=== PATIENT | female | born 1945 | race Caucasian/White ===

== ENCOUNTER → 2016-12-18 | Outpatient (CLI) | payer MEDICARE, BC ==
--- NOTE | 2016-12-24 08:28 | MM ---
Reason for exam: screening (asymptomatic). Last mammogram was performed 4 years and 3 months ago. History: Patient had first child at age 47. Family history of breast cancer in mother. Physical Findings: A clinical breast exam by your physician is recommended on an annual basis and results should be correlated with mammographic findings. MG 3D Screening Mammo W/Cad Bilateral CC and MLO view(s) were taken. Prior study comparison: October 01, 2012, mammogram, performed at [facility]. September 03, 2011, mammogram, performed at [facility]. There are scattered fibroglandular densities. There is chronic nodularity bilaterally. No significant changes when compared with prior studies. ASSESSMENT: Benign, BI-RAD 2 RECOMMENDATION: Routine screening mammogram of both breasts in 1 year.
== END ==
LOC: RADMAMWWP 16:21
PROVIDERS: ATTEND Internal Medicine
DX: Z12.31 Encounter for screening mammogram for malignant neoplasm of breast (principal)
CPT/HCPCS: 77063; G0202

== ENCOUNTER 2017-08-24 06:28 | Emergency (ER) | payer MEDICARE, BC ==
[2017-08-24] MEDS ORDERED: ACET/COD 240MG/24MG LIQ 10 ML SYRG PO ONE (07:37)
[2017-08-24] MEDS ORDERED: predniSONE 20 MG TAB PO STA (07:37)
[2017-08-24] MEDS ORDERED: IPRATROPIUM-ALBUTEROL 3 ML NEB INHALATION STA (07:37)
--- NOTE | 2017-08-24 08:18 | XR ---
EXAMINATION TYPE: XR chest 2V DATE OF EXAM: 08/24/2017 HISTORY: Pain. REFERENCE: NONE. FINDINGS: The lungs are clear. Pleural space are clear. The heart is not enlarged. IMPRESSION: NO ACUTE INTRATHORACIC ABNORMALITY.
--- NOTE | 2017-08-24 08:19 | XR ---
EXAMINATION TYPE: XR soft tissue neck , 2 VIEWS DATE OF EXAM ORDERED: 08/24/2017 HISTORY: Pain. COMPARISON: None. FINDINGS: Prevertebral soft tissues are normal. The epiglottis is normal. The airway appears patent. IMPRESSION: NORMAL SOFT TISSUE VIEWS OF THE NECK.
[2017-08-24] MEDS ORDERED: AZITHROMYCIN 500 MG TAB PO STA (08:33)
--- NOTE | 2017-08-24 08:34 | ED ---
General Adult HPI - General Chief complaint: Upper Respiratory Infection Stated complaint: Sore Throat/Cough Time Seen by Provider: 08/24/17 07:14 Source: patient, RN notes reviewed, old records reviewed Mode of arrival: ambulatory Limitations: no limitations - History of Present Illness Initial comments: This is a 71-year-old female the ER for evaluation of cough sore throat. Patient has history of asthma COPD. No recent hospitalizations or recent travel history no chest pain. Patient has has had symptoms previously worsening mainly over the last 2 days. Denies fever. Patient is internal modifying factors for symptoms, symptoms may be a little bit worse with activity - Related Data Home Medications Medication Instructions Recorded Confirmed Albuterol Sulfate [Proair Hfa] 1 - 2 puff INHALATION RT-Q6H PRN 08/24/17 Aspirin 81 mg PO DAILY 08/24/17 08/24/17 Calcium Carbonate/Vitamin D3 1 tab PO BID 08/24/17 08/24/17 [Calcium 500-Vit D3 200 Tablet] Cyanocobalamin [Vitamin B-12] 500 mcg PO DAILY 08/24/17 08/24/17 Lisinopril [Zestril] 10 mg PO DAILY 08/24/17 08/24/17 Multivitamins, Thera [Multivitamin 1 tab PO DAILY 08/24/17 08/24/17 (formulary)] Simvastatin [Zocor] 10 mg PO HS 08/24/17 08/24/17 Tiotropium 18 Mcg/Puff [Spiriva] 1 cap INHALATION RT-DAILY 08/24/17 08/24/17 Previous Rx's Medication Instructions Recorded Azithromycin [Zithromax Z-pack] 0 mg PO DIRECTED #1 pack 08/24/17 predniSONE 50 mg PO DAILY #5 tab 08/24/17 Allergies Allergy/AdvReac Type Severity Reaction Status Date / Time No Known Allergies Allergy Verified 08/24/17 07:18 Review of Systems ROS Statement: Those systems with pertinent positive or pertinent negative responses have been documented in the HPI. ROS Other: All systems not noted in ROS Statement are negative. Past Medical History Past Medical History: Asthma, COPD History of Any Multi-Drug Resistant Organisms: None Reported Past Surgical History: No Surgical Hx Reported Past Psychological History: No Psychological Hx Reported Smoking Status: Former smoker Past Alcohol Use History: None Reported Past Drug Use History: None Reported General Exam Limitations: no limitations General appearance: alert, in no apparent distress Head exam: Present: atraumatic, normocephalic, normal inspection Eye exam: Present: normal appearance, PERRL, EOMI. Absent: scleral icterus, conjunctival injection, periorbital swelling ENT exam: Present: normal exam, mucous membranes moist Neck exam: Present: normal inspection. Absent: tenderness, meningismus, lymphadenopathy Respiratory exam: Present: wheezes. Absent: normal lung sounds bilaterally, respiratory distress, rales, rhonchi, stridor Cardiovascular Exam: Present: regular rate, normal rhythm, normal heart sounds. Absent: systolic murmur, diastolic murmur, rubs, gallop, clicks GI/Abdominal exam: Present: soft, normal bowel sounds. Absent: distended, tenderness, guarding, rebound, rigid Extremities exam: Present: normal inspection, full ROM, normal capillary refill. Absent: tenderness, pedal edema, joint swelling, calf tenderness Back exam: Present: normal inspection Neurological exam: Present: alert, oriented X3, CN II-XII intact Psychiatric exam: Present: normal affect, normal mood Skin exam: Present: warm, dry, intact, normal color. Absent: rash Course Vital Signs 08/24/17 08/24/17 08/24/17 06:30 08:24 08:38 Temperature 98.7 F Pulse Rate 101 H 100 108 H Respiratory 20 Rate Blood Pressure 137/63 O2 Sat by Pulse 95 Oximetry 08/24/17 08:55 Temperature 98 F Pulse Rate 78 Respiratory 16 Rate Blood Pressure 135/74 O2 Sat by Pulse 98 Oximetry Medical Decision Making - Medical Decision Making 71 female DEL with cough sore throat. Patient with bronchitis. Patient will be discharged home on appropriate treatment, patient in no acute distress, currently feeling better - Lab Data Lab Results 08/24/17 08/24/17 Range/Units 07:52 08:30 Group A Strep Rapid Negative Negative (Negative) - Radiology Data Radiology results: report reviewed (X-ray soft tissue neck x-ray negative for acute disease), image reviewed Disposition Clinical Impression: Bronchitis, Asthmatic bronchitis Disposition: HOME SELF-CARE Condition: Good Instructions: Acute Bronchitis (ED) Prescriptions: Azithromycin [Zithromax Z-pack] 0 mg PO DIRECTED #1 pack predniSONE 50 mg PO DAILY #5 tab Referrals: Roddy Reyes MD [Primary Care Provider] - 1-2 days
[2017-08-24 08:56] VITALS: BP 135/74; PULSE 78; RESP 16; TEMP 98
== END 2017-08-24 08:55 | disposition home or self-care (01) ==
LOC: EC 06:28
DX: J44.9 Chronic obstructive pulmonary disease, unspecified (principal); Z87.891 Personal history of nicotine dependence; Z79.82 Long term (current) use of aspirin; Z79.899 Other long term (current) drug therapy
CPT/HCPCS: 94640; 87081; 87430; 70360; 71046; 99284; J7512

== ENCOUNTER → 2018-02-03 | Outpatient (CLI) | payer MEDICARE, BC ==
--- NOTE | 2018-02-05 12:52 | MM ---
Reason for exam: screening (asymptomatic). Last mammogram was performed 1 year and 2 months ago. History: Patient is postmenopausal and had first child at age 47. Family history of breast cancer in mother. Physical Findings: A clinical breast exam by your physician is recommended on an annual basis and results should be correlated with mammographic findings. MG 3D Screening Mammo W/Cad Bilateral CC and MLO view(s) were taken. Prior study comparison: December 18, 2016, bilateral MG 3d screening mammo w/cad. October 01, 2012, mammogram, performed at [facility]. The breast tissue is heterogeneously dense. This may lower the sensitivity of mammography. Finding: There are typically benign round calcifications in the right breast. There is no discrete abnormality. ASSESSMENT: Benign, BI-RAD 2 RECOMMENDATION: Routine screening mammogram of both breasts in 1 year.
== END | disposition home or self-care (01) ==
LOC: RADMAMWWP 09:09
PROVIDERS: ATTEND Internal Medicine
DX: Z12.31 Encounter for screening mammogram for malignant neoplasm of breast (principal)
CPT/HCPCS: 77063; 77067

== ENCOUNTER → 2019-03-05 | Outpatient (CLI) | payer MEDICARE, BC ==
--- NOTE | 2019-03-09 10:18 | MM ---
Reason for exam: screening (asymptomatic). Last mammogram was performed 1 year and 1 month ago. History: Patient is postmenopausal and had first child at age 47. Family history of breast cancer in mother at age 55. Physical Findings: A clinical breast exam by your physician is recommended on an annual basis and results should be correlated with mammographic findings. MG 3D Screening Mammo W/Cad Bilateral CC and MLO view(s) were taken. Prior study comparison: February 03, 2018, bilateral MG 3d screening mammo w/cad. December 18, 2016, bilateral MG 3d screening mammo w/cad. No significant changes when compared with prior studies. ASSESSMENT: Negative, BI-RAD 1 RECOMMENDATION: Routine screening mammogram of both breasts in 1 year.
== END | disposition home or self-care (01) ==
LOC: RADMAMWWP 09:26
PROVIDERS: ATTEND Internal Medicine
DX: Z12.31 Encounter for screening mammogram for malignant neoplasm of breast (principal)
CPT/HCPCS: 77063; 77067

== ENCOUNTER 2023-07-02 19:56 | Emergency (ER) | payer MEDICARE, BC ==
--- NOTE | 2023-07-02 20:44 | ED ---
SOB HPI - General Source: patient, RN notes reviewed <Greta Ruvalcaba - Last Filed: 07/02/23 20:43> <Kerrie Hernández - Last Filed: 07/03/23 03:38> - General Stated Complaint: SOB,Cough Time Seen by Provider: 07/02/23 20:43 - History of Present Illness Initial Comments: Patient is 77-year-old female presented ER with chief complaint of shortness of breath. Patient was recently seen at urgent care for similar complaint. Daughter reports that it now sounds like it is in her chest and that she is coughing up clear phlegm. Patient has a history of COPD. Patient is normally on 3 L of oxygen at home and has recently had to move it up to 4. Patient denies any fevers, chills, night sweats. (Greta Ruvalcaba) 7-year-old female history of COPD who presents to ER today for reevaluation of persistent viral URI-type symptoms. Patient was seen and evaluated in urgent care last week she was prescribed an antibiotic that she believes is Augmentin as well as 5 days of 50 mg of prednisone. She completed this course of treatment but has persistent nonproductive cough and wheezing. Patient has oxygen as needed at home but has noted she's felt like she needed it more often lately. Patient states she does 4 breathing treatments daily and has transient improvement in her symptoms but never resolution. Patient denies any fevers chills or chest pain. (Kerrie Hernández) - Related Data Home Medications Medication Instructions Recorded Confirmed Albuterol Sulfate [Proair Hfa] 1 - 2 puff INHALATION RT-Q6H PRN 08/24/17 08/24/17 Aspirin 81 mg PO DAILY 08/24/17 08/24/17 Calcium Carbonate/Vitamin D3 1 tab PO BID 08/24/17 08/24/17 [Calcium 500-Vit D3 200 Tablet] Cyanocobalamin [Vitamin B-12] 500 mcg PO DAILY 08/24/17 08/24/17 Multivitamins, Thera [Multivitamin 1 tab PO DAILY 08/24/17 08/24/17 (formulary)] Simvastatin [Zocor] 10 mg PO HS 08/24/17 08/24/17 Tiotropium 18 Mcg/Puff [Spiriva] 1 cap INHALATION RT-DAILY 08/24/17 08/24/17 lisinopriL [Zestril] 10 mg PO DAILY 08/24/17 08/24/17 Previous Rx's Medication Instructions Recorded Azithromycin [Zithromax Z-pack (6 0 mg PO DIRECTED #1 pack 08/24/17 tabs)] predniSONE 50 mg PO DAILY #5 tab 08/24/17 Ipratropium-Albuterol Nebulize 3 ml INHALATION BID PRN #30 ml 07/03/23 [Duoneb 0.5 mg-3 mg/3 ml Soln] Allergies Allergy/AdvReac Type Severity Reaction Status Date / Time No Known Allergies Allergy Verified 07/02/23 21:05 Review of Systems ROS Other: All systems not noted in ROS Statement are negative. <Greta Ruvalcaba - Last Filed: 07/02/23 20:43> ROS Other: All systems not noted in ROS Statement are negative. <Kerrie Hernández P - Last Filed: 07/03/23 03:38> ROS Statement: Those systems with pertinent positive or pertinent negative responses have been documented in the HPI. Past Medical History Past Medical History: Asthma, COPD History of Any Multi-Drug Resistant Organisms: None Reported Past Surgical History: No Surgical Hx Reported Past Psychological History: No Psychological Hx Reported Past Alcohol Use History: None Reported Past Drug Use History: None Reported <Greta Ruvalcaba - Last Filed: 07/02/23 20:43> General Exam <Greta Ruvalcaba - Last Filed: 07/02/23 20:43> General appearance: alert Head exam: Present: atraumatic, normocephalic ENT exam: Present: normal exam Respiratory exam: Present: wheezes Cardiovascular Exam: Present: regular rate GI/Abdominal exam: Present: soft Rectal exam: Present: deferred Neurological exam: Present: alert, oriented X3 Psychiatric exam: Present: normal affect, normal mood <Kerrie Hernández P - Last Filed: 07/03/23 03:38> - General Exam Comments Initial Comments: Visual Physical Exam Vital signs reviewed General: Well-appearing, nontoxic, no acute distress. Head: Normocephalic, atraumatic Eyes: PERRLA, EOMI ENT: Airway patent Chest: Nonlabored breathing Skin: No visual rash, normal skin tone Neuro: Alert and oriented 3 Musculoskeletal: No gross abnormalities (Greta Ruvalcaba) Course Vital Signs 07/02/23 07/03/23 07/03/23 21:01 02:37 02:59 Temperature 98.5 F Pulse Rate 81 89 80 Respiratory 20 20 Rate Blood Pressure 139/76 136/65 O2 Sat by Pulse 99 98 Oximetry 07/03/23 03:07 Temperature Pulse Rate 80 Respiratory Rate Blood Pressure O2 Sat by Pulse Oximetry Medical Decision Making <Greta Ruvalcaba - Last Filed: 07/02/23 20:43> - Lab Data Result diagrams: 07/02/23 21:58 07/02/23 21:58 <Kerrie Hernández - Last Filed: 07/03/23 03:38> - Medical Decision Making I performed the quick note portion of the exam. Electronically signed by Greta Ruvalcaba PA-C (Greta Ruvalcaba) Was pt. sent in by a medical professional or institution (CLAUDIA Blakely, NURSE SPECIAL, urgent care, hospital, or care home...) When possible be specific @ -No Did you speak to anyone other than the patient for history (EMS, parent, family, police, friend...)? What history was obtained from this source @ -No Did you review nursing and triage notes (agree or disagree)? Why? @ -I reviewed and agree with nursing and triage notes Were old charts reviewed (outside hosp., previous admission, EMS record, old EKG, old radiological studies, urgent care reports/EKG's, care home records)? Report findings @ -No old charts were reviewed Differential Diagnosis (chest pain, altered mental status, abdominal pain women, abdominal pain men, vaginal bleeding, weakness, fever, dyspnea, syncope, headache, dizziness, GI bleed, back pain, seizure, CVA, palpatations, mental health)? @ -Differential Dyspnea: Coronary syndrome, arrhythmia, tamponade, asthma, COPD, pulmonary embolism, pneumonia, pneumothorax, pulmonary effusion, anaphylaxis, diabetic ketoacidosis, flailed chest, pulmonary contusion, diaphragmatic rupture, anemia, neuromuscular, this is not meant to be an all-inclusive list. EKG interpreted by me (3pts min.). @ -As above X-rays interpreted by me (1pt min.). @ COPD changes, no pneumothorax no focal consolidations CT interpreted by me (1pt min.). @ -None done U/S interpreted by me (1pt. min.). @ -None done What testing was considered but not performed or refused? (CT, X-rays, U/S, labs)? Why? @ -None What meds were considered but not given or refused? Why? @ -None Did you discuss the management of the patient with other professionals (professionals i.e. DrErrol, PA, NURSE SPECIAL, lab, RT, psych nurse, social media developer, immigration lawyer, teacher, classifications officer cc/cm, caseworker protective services)? Give summary @ -No Was smoking cessation discussed for >3mins.? @ -No Was critical care preformed (if so, how long)? @ -No Were there social determinants of health that impacted care today? How? (Homelessness, low income, unemployed, alcoholism, drug addiction, transportation, low edu. Level, literacy, decrease access to med. care, intermediate, rehab)? @ -No Was there de-escalation of care discussed even if they declined (Discuss DNR or withdrawal of care, Hospice)? DNR status @ -No What co-morbidities impacted this encounter? (DM, HTN, Smoking, COPD, CAD, Canc er, CVA, ARF, Chemo, Hep., AIDS, mental health diagnosis, sleep apnea, morbid obesity)? @ -COPD, obesity Was patient admitted / discharged? Hospital course, mention meds given and route, prescriptions, significant lab abnormalities, going to OR and other pertinent info. @ Discharge Patient's workup was initiated in the waiting room due to prolonged wait times. Chest x-ray, viral swabs and labs were obtained. Chest x-ray shows changes c onsistent with recent COVID infection though the patient reports she tested negative last week. Viral swabs are negative today. Labs are nonactionable. Patient received a DuoNeb treatment reported feeling better area patient comfortable with plan for discharge home with DuoNeb's. Undiagnosed new problem with uncertain prognosis? @ -No Drug Therapy requiring intensive monitoring for toxicity (Heparin, Nitro, Insulin, Cardizem)? @ -No Were any procedures done? @ -No Diagnosis/symptom? @ COPD exacerbation Acute, or Chronic, or Acute on Chronic? @ -Acute on chronic Uncomplicated (without systemic symptoms) or Complicated (systemic symptoms)? @ -default Side effects of treatment? @ -No Exacerbation, Progression, or Severe Exacerbation? @ Exacerbation Poses a threat to life or bodily function? How? (Chest pain, [place], [place], pneumonia, PE, COPD, DKA, ARF, appy, cholecystitis, CVA, Diverticulitis, Homicidal, Suicidal, threat to staff... and all critical care pts) @ Unlikely (Kerrie Hernández) - Lab Data Lab Results 07/02/23 07/02/23 07/02/23 Range/Units 21:58 21:58 21:58 WBC 11.6 H (3.8-10.6) k/uL RBC 3.95 (3.80-5.40) m/uL Hgb 13.1 (11.4-16.0) gm/dL Hct 39.4 (34.0-46.0) % MCV 99.7 (80.0-100.0) fL MCH 33.1 (25.0-35.0) pg MCHC 33.2 (31.0-37.0) g/dL RDW 12.6 (11.5-15.5) % Plt Count 189 (150-450) k/uL MPV 7.5 Sodium 139 (137-145) mmol/L Potassium 4.5 (3.5-5.1) mmol/L Chloride 108 H (98-107) mmol/L Carbon Dioxide 23 (22-30) mmol/L Anion Gap 8 mmol/L BUN 15 (7-17) mg/dL Creatinine 1.03 (0.52-1.04) mg/dL Est GFR (CKD-EPI)AfAm 62 (>60 ml/min/1.73 sqM) Est GFR (CKD-EPI)NonAf 53 (>60 ml/min/1.73 sqM) Glucose 102 H (74-99) mg/dL Calcium 9.5 (8.4-10.2) mg/dL Total Bilirubin 1.2 (0.2-1.3) mg/dL AST 30 (14-36) U/L ALT 38 H (4-34) U/L Alkaline Phosphatase 71 (38-126) U/L Troponin I (0.000-0.034) ng/mL NT-Pro-B Natriuret Pep 82 pg/mL Total Protein 6.6 (6.3-8.2) g/dL Albumin 4.2 (3.5-5.0) g/dL Influenza Type A (PCR) Not Detected (Not Detectd) Influenza Type B (PCR) Not Detected (Not Detectd) RSV (PCR) Not Detected (Not Detectd) SARS-CoV-2 (PCR) Not Detected (Not Detectd) 07/02/23 Range/Units 21:58 WBC (3.8-10.6) k/uL RBC (3.80-5.40) m/uL Hgb (11.4-16.0) gm/dL Hct (34.0-46.0) % MCV (80.0-100.0) fL MCH (25.0-35.0) pg MCHC (31.0-37.0) g/dL RDW (11.5-15.5) % Plt Count (150-450) k/uL MPV Sodium (137-145) mmol/L Potassium (3.5-5.1) mmol/L Chloride (98-107) mmol/L Carbon Dioxide (22-30) mmol/L Anion Gap mmol/L BUN (7-17) mg/dL Creatinine (0.52-1.04) mg/dL Est GFR (CKD-EPI)AfAm (>60 ml/min/1.73 sqM) Est GFR (CKD-EPI)NonAf (>60 ml/min/1.73 sqM) Glucose (74-99) mg/dL Calcium (8.4-10.2) mg/dL Total Bilirubin (0.2-1.3) mg/dL AST (14-36) U/L ALT (4-34) U/L Alkaline Phosphatase (38-126) U/L Troponin I <0.012 (0.000-0.034) ng/mL NT-Pro-B Natriuret Pep pg/mL Total Protein (6.3-8.2) g/dL Albumin (3.5-5.0) g/dL Influenza Type A (PCR) (Not Detectd) Influenza Type B (PCR) (Not Detectd) RSV (PCR) (Not Detectd) SARS-CoV-2 (PCR) (Not Detectd) Disposition <Greta Ruvalcaba - Last Filed: 07/02/23 20:43> Is patient prescribed a controlled substance at d/c from ED?: No <Kerrie Hernández - Last Filed: 07/03/23 03:38> Clinical Impression: Viral URI, COPD exacerbation Disposition: HOME SELF-CARE Condition: Stable Referrals: Jm Diggs MD [Primary Care Provider] - 1-2 days
[2023-07-02 21:06] VITALS: RESP 20
[2023-07-02 22:22] LABS: HCT 39.4 % (34.0-46.0); HGB 13.1 gm/dL (11.4-16.0); MCH 33.1 pg (25.0-35.0); MCHC 33.2 g/dL (31.0-37.0); MCV 99.7 fL (80.0-100.0); Mean Platelet Volume 7.5; Platelet Count 189 k/uL (150-450); RBC 3.95 m/uL (3.80-5.40); RDW 12.6 % (11.5-15.5); WBC 11.6 k/uL (3.8-10.6)
[2023-07-02 22:39] LABS: ALT 38 U/L (4-34); AST 30 U/L (14-36); African American GFR (CKD) 62 (>60 ml/min/1.73 sqM); Albumin 4.2 g/dL (3.5-5.0); Alkaline Phosphatase 71 U/L (38-126); Anion Gap 8 mmol/L; Blood Urea Nitrogen 15 mg/dL (7-17); Calcium 9.5 mg/dL (8.4-10.2); Carbon Dioxide 23 mmol/L (22-30); Chloride 108 mmol/L (98-107); Glucose 102 mg/dL (74-99); Non-African American GFR(CKD) 53 (>60 ml/min/1.73 sqM); Potassium 4.5 mmol/L (3.5-5.1); Sodium 139 mmol/L (137-145); Total Bilirubin 1.2 mg/dL (0.2-1.3); Total Protein 6.6 g/dL (6.3-8.2)
[2023-07-02 22:48] LABS: NT-Pro-B-Type Natriuretic Pept 82 pg/mL
--- NOTE | 2023-07-03 01:25 | XR ---
EXAMINATION TYPE: XR chest 2V DATE OF EXAM: 07/02/2023 9:20 PM CLINICAL INDICATION:Female, 77 years old with history of cough; [facility] COMPARISON: 01/02/2022 TECHNIQUE: XR chest 2V. Frontal PA and lateral views of the chest. FINDINGS: Lines/Tubes: Extrinsic structures over the chest. No indwelling lines are seen. Heart/mediastinum: Cardiomediastinal silhouette is well defined. Heart size is normal. Atherosclero tic calcifications are seen in the aorta. Pulmonary vascularity: Not increased, Lungs/Pleura: Prominent interstitial lung markings are seen scattered throughout the lungs with mild hyperinflation, mild flattening of the diaphragm and increased lucency of the lung apices. No evidenc e of focal consolidation, pneumothorax or pleural effusion. Musculoskeletal: No acute osseous abnormality demonstrated in the limits of the exam. Mild degenerat corine changes of the dorsal spine. Other findings: None. IMPRESSION: Possible COPD changes. No acute cardiopulmonary abnormality.
[2023-07-03] MEDS ORDERED: IPRATROPIUM-ALBUTEROL 3 ML NEB INHALATION STA (02:42)
[2023-07-03 04:32] VITALS: BP 105/59; PULSE 99; TEMP 98.8
== END 2023-07-03 04:20 | disposition home or self-care (01) ==
LOC: EC 19:56
DX: J44.1 Chronic obstructive pulmonary disease with (acute) exacerbation (principal); J06.9 Acute upper respiratory infection, unspecified; Z79.899 Other long term (current) drug therapy; Z20.822 Contact with and (suspected) exposure to COVID-19
CPT/HCPCS: 36415; 71046; 80053; 83880; 84484; 85027; 87636; 94640; 99285

== ENCOUNTER 2024-04-14 11:56 | Day surgery (SDC) | payer MEDICARE, BC ==
[2024-04-13 09:26] VITALS: BMI 36.6
[~2024-04-14 11:56] MED LIST: ATROPINE SULFATE 0.4 MG/ML 1 ML VIAL IM ONE; LACTATED RINGERS 1,000 ML IV SCH; LIDOCAINE 1% (10MG/ML) FOR IV START INTRADERMA PRN
[2024-04-14 12:53] VITALS: TEMP 97
[2024-04-14] MEDS: IV FLUID CONTINUATION 1,000 ML IV ONE (12:55)
[2024-04-14] MEDS: LIDOCAINE 2% INJ 20 MG/ML INTRATRACH ONE ×2 (13:03→13:24)
[2024-04-14] MEDS: LACTATED RINGERS 1,000 ML IV SCH (13:06)
[2024-04-14] MEDS ORDERED: PROPOFOL 10 MG/ML 20 ML VIAL IV ONE (13:09)
[2024-04-14] MEDS ORDERED: LIDOCAINE 2% (PF) 20 MG/ML 5 ML VIAL ONE (13:09)
[2024-04-14 13:13] LABS: Glucose,Whole Blood 95 mg/dL (70-110)
[2024-04-14 13:44] VITALS: RESP 22
[2024-04-14] MEDS: IPRATROPIUM-ALBUTEROL 3 ML NEB INHALATION STA (13:51)
--- NOTE | 2024-04-14 15:18 | XR ---
EXAMINATION TYPE: XR chest 1V portable DATE OF EXAM: 04/14/2024 3:05 PM COMPARISON: Chest radiographs from 04/02/2024 TECHNIQUE: XR chest 1V portable Portable AP radiograph of the chest. CLINICAL INDICATION:Female, 78 years old with history of post bronch, persistent cough/difficulty megan athing; FINDINGS: Lungs/Pleura: There is no evidence of pleural effusion, focal consolidation, or pneumothorax. Pulmonary vascularity: Unremarkable. Heart/mediastinum: Cardiomediastinal silhouette is unremarkable. Atherosclerotic calcifications are seen in the aorta. Musculoskeletal: No acute osseous pathology. IMPRESSION: No acute cardiopulmonary disease/process. [facility], , 04/14/2024 3:16 PM
[2024-04-14] MEDS: methylPREDNISolone SOD SUCCI 125 MG/2 ML VIAL IV STA (15:42)
[2024-04-14 15:58] VITALS: BP 103/60; PULSE 125
--- NOTE | 2024-04-14 19:47 | PCN ---
PROCEDURE NOTE PROCEDURE PERFORMED: Bronchoscopy, airway examination, therapeutic lavage, BAL, right middle lobe. PREOPERATIVE DIAGNOSES: Tracheobronchomalacia, retained secretions, pulmonary infection. POSTOPERATIVE DIAGNOSES: Tracheobronchomalacia, retained secretions, pulmonary infection. LINEN GRADER: Dr. Garcia. TUNGSTEN TENDER: Dr. Renita Deluna. The patient's procedure took place in [facility] room #3. There was informed consent and universal timeout. DESCRIPTION OF PROCEDURE: Anesthesia provided monitored anesthesia care. After the patient was adequately sedated and being fully monitored, the bronchoscope was inserted through the right nostril. It passed through the right nasopharynx into the oropharynx. The hypopharyngeal structures were next evaluated. The anterior commissure, true cords, false cords, arytenoids, piriform sinuses, right and left, vallecula, and epiglottis, all appeared normal. The glottic opening was topicalized with lidocaine. The bronchoscope was pushed through the glottic opening into the trachea. There was a significant amount of tracheomalacia. There was thick secretions noted throughout the trachea. They were suctioned. Next, the right and left mainstem were topicalized. Tracheal rica was sharp. There was significant degree of moderate to more severe tracheobronchomalacia throughout the entire tracheobronchial tree. The right upper lobe and its 3 segments, right middle lobe and its 2 segments, right lower lobe and its 5 segments, left upper lobe proper and its 2 segments, lingula and its 2 segments, and the left lower lobe and its 4 segments all had similar findings of diffuse moderate to severe bronchomalacia. The airways were inflamed. There was diffuse erythema and hyperemia in the airways. There was some vascular prominence. There was no dominant mass or tumor. There were thick secretions noted throughout. They were suctioned with the aid of saline. Next, the bronchoscope was wedged into the right middle lobe. A formal BAL took place. The patient tolerated procedure well. 30 mL of fluid was recovered. There was no immediate complication. The patient tolerated the procedure well. The fluid will be sent for analysis including cytology and microbiology. The bronchoscope was withdrawn and the patient will be recovered. MMODL / IJN: [id number] /
[2024-04-15 05:32] LABS: Appearance,BF Blood Tinged (Clear); RBC, Body Fluid 10450 /UL (0-2000)
[2024-04-15 13:33] LABS: Nucleated Cells, Body Fluid 250 /UL
== END 2024-04-14 16:20 | disposition home or self-care (01) ==
LOC: ORWHC2ENDO 11:56
PROVIDERS: ATTEND Internal Medicine Critical Care Medicine
DX: J20.9 Acute bronchitis, unspecified
CPT/HCPCS: 31624; 71045; 87070; 87102; 87116; 87205; 87206; 87496; 87498; 87502; 87529; 87634; 87635; 87798; 88108; 88305; 89050